=== PATIENT | female | born 1985 | race Caucasian/White ===

== ENCOUNTER 2021-05-26 10:01 | Outpatient (CLI) | payer OTHER | END 2021-05-26 10:28 | disposition home or self-care (01) | LOC: NST 10:01 | PROVIDERS: ATTEND Obstetrics & Gynecology | DX: Z34.82 Encounter for supervision of other normal pregnancy, second trimester (principal) ==

== ENCOUNTER 2021-07-31 16:29 | Outpatient (CLI) | payer OTHER | END 2021-08-01 10:42 | disposition home or self-care (01) | LOC: LAB 16:29 | PROVIDERS: ATTEND Obstetrics & Gynecology Maternal & Fetal Medicine | DX: Z34.83 Encounter for supervision of other normal pregnancy, third trimester (principal) ==

== ENCOUNTER 2021-08-05 05:05 | Inpatient (IN) | payer OTHER ==
[~2021-08-05] VITALS: Ht 167.6 cm; Wt 112.9 kg
[2021-08-05] MEDS ORDERED: PRENATABS RX T1 EACH PO (05:34)
== END 2021-08-07 14:36 | disposition home or self-care (01) | DRG 807 ==
LOC: LDR 05:05 → OB/GYN 14:00 → SURG-SUITE 16:01
PROVIDERS: ADMIT Obstetrics & Gynecology; ATTEND Obstetrics & Gynecology
PROC: 10E0XZZ Delivery of Products of Conception, External Approach (ICD-10-PCS; principal; 2021-08-05)
PROC: 0KQM0ZZ Repair Perineum Muscle, Open Approach (ICD-10-PCS; 2021-08-05)
PROC: 4A1HXCZ Monitoring of Products of Conception, Cardiac Rate, External Approach (ICD-10-PCS; 2021-08-05)
DX: O70.1 Second degree perineal laceration during delivery (principal); Z37.0 Single live birth; Z20.822 Contact with and (suspected) exposure to COVID-19; Z3A.38 38 weeks gestation of pregnancy